=== PATIENT | male | born 1945 | race Caucasian/White ===

== ENCOUNTER 2023-12-13 15:17 | Emergency (ER) | payer OTHER, SELFPAY ==
[2023-12-13 15:18] VITALS: BP 149/83
--- NOTE | 2023-12-13 15:45 | ED.GENMED ---
History of Present Illness
General
Chief Complaint: Facial Problem
Source: patient and spouse
Time Seen by Provider: 12/13/23 15:35
Travel History
Have you had any contact with someone who has COVID-19?: No
Do you have any symptoms of coronavirus? Fever > 100 degrees, chills, cough, shortness of breath, sore throat, loss of taste or smell, muscle aches, or headache?: No
History of Present Illness
History of Present Illness:
78-year-old male with past medical history of bladder cancer, previously monitored benign right-sided facial/parotid tumor (follows with Dr. Hatfield from [facility] [place]) presenting to the emergency department for evaluation after he noticed
some mild discomfort to the right side of the face yesterday evening, this morning woke up and had significantly worse swelling and the continued pain prompting him to come to the ER today for further evaluation. Patient denies any fevers, chills,
rigors, traumatic injuries, recent illnesses, nasal congestion, sore throat, otalgia or hearing changes or any other concerns. Patient notes that he would follow annually with his oncologist at [facility] and states that his last visit in September
was told that they did not even palpate the mass any longer and that patient may not even need to come to see them on his annual visit next year.
Past History
Past History
ED Past Medical History: Cancer
ED Past Surgical History: Orthopedic
Social History
Tobacco: Former smoker
Alcohol: Occasional
Drug: None
Personal:
Living: with family
Review of Systems
Review of Systems
All Other Systems: ROS reviewed and negative except as documented in HPI and ROS
Phy Exam
Physical Exam
Physical Exam:
GENERAL: Alert , in no apparent distress
EYE: conjunctiva clear, pupil 3mm b/l, EOMI
Head: Normocephalic atraumatic
NECK: Supple, no other areas of lymphadenopathy
ENT: mmm. dentures to upper jaw, no palpable masses intraorally, no fluctuance. Moderate to large right sided facial edema extending from pre-auricular region inferiorly down towards angle of mandible. firm mass like structure. non-mobile. no
overlying erythema. mild ttp. Tolerating secretions, no trismus, uvula midline and airway is patent
LUNGS: no acute respiratory distress
NEUROLOGICAL: Alert and oriented
SKIN: Warm and dry, skin intact.
MUSCULOSKELETAL: well perfused.
PSYCH: Normal and appropriate interaction.
Scores
Heart Failure Risk
Heart Failure Risk Score: Not Applicable
Heart Score for Chest Pain Patients
STEMI patient?: Not applicable
Withdrawal Assessment of Alcohol
Withdrawal Assessment Completed?: Not applicable
Course
Orders/Labs/Results
Orders:
Orders
12/13/23 15:45
CT Facial Bones W/ Iv Contrast Urgent
Comment:
Reason For Exam: right sided facial mass/edema
12/13/23 16:10
Basic Metabolic Panel Urgent
Complete Blood Count/With Diff Urgent
Abnormal Lab Results
12/13/23
16:10
WBC 11.2 H 10^3/uL
(4.8-10.8)
RBC 4.25 L 10^6/uL
(4.70-6.10)
Hct 37.8 L %
(39.0-52.0)
MCH 32.0 H pg
(27.0-31.0)
Absolute Neuts (auto) 7.5 H 10^3/uL
(1.4-6.5)
Absolute Monos (auto) 1.3 H 10^3/uL
(0.1-0.6)
Lymphocytes % 17.8 L %
(20.5-51.1)
Monocytes % 11.7 H %
(1.7-9.3)
Glucose 125 H mg/dl
(70-99)
12/13/23 16:10
12/13/23 16:10
Vital Signs
Initial and Last Documented VS:
Initial Vital Signs
Temp Pulse Resp BP Pulse Ox
98 F 94 18 149/83 97
12/13/23 15:18 12/13/23 15:18 12/13/23 15:18 12/13/23 15:18 12/13/23 15:18
Last Documented Vital Signs
Temp Pulse Resp BP Pulse Ox
98 F 77 18 147/72 98
12/13/23 15:18 12/13/23 17:42 12/13/23 15:18 12/13/23 17:42 12/13/23 17:42
MDM/Problems Addressed
Differential Diagnosis Includes:
Malignancy, lymphadenopathy, parotitis, abscess
MDM/Problems Addressed:
78-year-old male presenting to the emergency department for evaluation of a right-sided facial swelling, concern for masslike structure. No airway compromise. Patient is otherwise very well-appearing and in no acute distress. Has a known history
of a mass that has been followed by [facility] and was ultimately inconclusive for any malignancy on previous biopsy and was only monitored annually with ultrasound and physical examination. Will obtain labs and CT imaging. Reassessment following.
*Radiology
Radiology exam reviewed: radiology read reviewed
*Pulse Oximetry
Patient hypoxic: no
*Critical Care Note
Total Time (30-74mins, 75-104mins- exclusive of procedures): Not Applicable
Patient Management
Discussion with other providers: Food Order Expediter
Escalation/DeEscalation of care consider admission/obs:
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 Patient was provided with a printout of the CT report. I notified our on-call ENT, Dr. Salgado, that patient would be calling the office for
follow-up. Patient will also contact his physician at [facility] for an expedited follow-up. Motrin/Tylenol as needed for pain, ice over the affected area for additional pain relief. There is no signs of airway compromise. Patient is otherwise
stable for discharge home.
ED Attending Note
-
Portions of this chart may have been created with voice recognition software.� Occasional wrong word or��sound alike� substitutions may have occurred due to the inherent limitations of voice recognition software.
Discharge Plan
Departure
Patient Disposition: Home (Routine Discharge)
Date of Disposition: 12/13/23
Time of Disposition: 17:24
Patient with high blood pressure during this ER visit?: Yes
Discharge Problem:
Mass of right parotid gland
Prescriptions:
No Action
No Current Medications
0
Referrals:
Marquez Zhou PA-C [Family Provider] -
Josep Salgado MD [Active] - (ENT)
Interventions
Interventions:
*Risk Screen - Suicide Last Done: 12/13/23 15:26
*General Assessment Last Done: 12/13/23 15:26
*ED COVID-19 Vaccine History Last Done: 12/13/23 15:26
ED-Skin Assessment Last Done: 12/13/23 16:34
Discharge Date and Time
Print Language: CITIZEN OF [place]
[2023-12-13 16:12] VITALS: BP 136/76; BMI 39.0
[2023-12-13 16:18] LABS: % Basophils 0.5 % (0-2); % Eosinophils 2.4 % (0-6); % Immature Granulocytes 0.3 % (0-0.5); % Lymphocytes 17.8 % (20.5-51.1); % Monocytes 11.7 % (1.7-9.3); % Neutrophils 67.3 % (42.2-75.2); Absolute Basophils 0.1 10^3/uL (0-0.2); Absolute Eosinophils 0.3 10^3/uL (0-0.7); Absolute Monocytes 1.3 10^3/uL (0.1-0.6); Absolute Neutrophils 7.5 10^3/uL (1.4-6.5); Hematocrit 37.8 % (39.0-52.0); Hemoglobin 13.6 g/dL (13.0-18.0); Mean Corpuscular Volume 88.9 fL (80.0-94.0); Mean Platelet Volume 9.1 fL (7.4-10.4); Nucleated Red Blood Cells % 0 % (-); Platelet Count 256 10^3/uL (130-400); Red Blood Cell Count 4.25 10^6/uL (4.70-6.10); Red Cell Dist. Width 13.7 % (11.5-14.5); White Blood Cell Count 11.2 10^3/uL (4.8-10.8)
[2023-12-13 16:36] LABS: Blood Urea Nitrogen 14 mg/dl (9-20); Calcium 10.1 mg/dl (8.4-10.2); Carbon Dioxide 22 mmol/L (22-30); Chloride 103 mmol/L (98-107); Estimated Creatinine Clearance 88 ml/min; Glucose 125 mg/dl (70-99); Potassium 3.9 mmol/L (3.5-5.1); Sodium 137 mmol/L (135-145); eGFR > 60.00
[2023-12-13 17:42] VITALS: BP 147/72
== END 2023-12-13 18:06 | disposition home or self-care (01) ==
LOC: EMR 15:17
PROVIDERS: Physician Assistant Medical; EMERGENCY PHYSICIAN Emergency Medicine; FAMILY PHYSICIAN Physician Assistant Medical
DX: K11.9 Disease of salivary gland, unspecified (principal); Z87.891 Personal history of nicotine dependence
CPT/HCPCS: 99284; 70487; 80048; 85025; Q9967

== ENCOUNTER 2024-02-13 17:56 | Inpatient (IN) | payer OTHER, SELFPAY ==
[2024-02-13] VITALS (8 sets, daily range): BP systolic 105–149; BP diastolic 58–85; BMI 38.9; BMI 38.1
[2024-02-13] MEDS: VALIUM 2 MG PO (14:37)
--- NOTE | 2024-02-13 14:37 | ED.GENMED ---
History of Present Illness
<THERESE Frye - Last Filed: 02/13/24 16:48>
General
Chief Complaint: Musculo-Skeletal Complaint
Source: patient
Exam Limitations: none
Time Seen by Provider: 02/13/24 13:42
History of Present Illness
History of Present Illness:
78 yr old male presents to the ER for evaluation. Patient reports he does typically get stiff next start with a stiff neck last Tuesday. Since then it is radiated to his shoulders. He did see his family doctor on Tuesday 3 days ago and was
prescribed 5 mg of Flexeril he has taken at night. He still complains of feel stiffness in his neck worse with moving the left right or looking up. He also feels pain in his shoulders and on Tuesday, yesterday he started with pain in his left
ankle. He denies any fever or chills. He denies any injury. He does reports he is having pain with bearing weight on left ankle.
Past History
<THERESE Frye - Last Filed: 02/13/24 16:48>
Past History
ED Past Medical History: Cancer
ED Past Surgical History: Orthopedic
Social History
Tobacco: Former smoker
Alcohol: Occasional
Drug: None
Personal:
Living: with family
Review of Systems
<THERESE Frye - Last Filed: 02/13/24 16:48>
Review of Systems
Allergies reviewed?: Yes
Other source history: family
All Other Systems: ROS reviewed and negative except as documented in HPI and ROS
Constitutional: Reports no symptoms; Denies fever, fatigue or chills
Respiratory: Reports no symptoms
Cardiac: Reports no symptoms
ABD/GI: Reports no symptoms
Musculoskeletal: Reports other (neck pain radiating to b/l shoulders and left ankle pain )
Skin: Reports no symptoms
Neurological: Reports no symptoms
Endocrine: Reports no symptoms
Hematologic/Lymphatic: Reports no symptoms
Psychiatric: Reports no symptoms
Phy Exam
<THERESE Frye - Last Filed: 02/13/24 16:48>
General Physical Exam
General Presentation: well appearing
General age: appears stated age
General Skin: warm and dry
General Habitus: elderly
General Mental: alert
General Hydration: appears well hydrated
Cardiovascular Exam
Cardiovascular Exam: tachycardia
Pulmonary Exam
Pulmonary Exam: lungs clear and no respiratory distress
Neurological Exam
Neurological Exam: alert, oriented x3 and other (Normal distal sensation to bilateral upper and lower extremities)
Musculoskeletal Exam
Musculoskeletal Exam: other (left ankle with mild swelling + erythema to medial left ankle tender to touch; patient is tender throughout the cervical muscles trapezius pain with flexion extension moving right to left)
Skin Exam
Skin Exam: normal color and warm/dry
Psychiatric Exam
Psychiatric Exam: normal mood/affect
Course
<THERESE Frye - Last Filed: 02/13/24 16:48>
Orders/Labs/Results
Orders:
Orders
02/13/24 14:32
Foot, Left 3 View [CR Foot - Left Min 3 Views] Urgent
Comment:
Reason For Exam: pain
02/13/24 14:33
Electrocardiogram (*1) Stat
Reason for Study: Other
Other Reason for Exam: chest pain
EKG- Treatment ONCE
Dexamethasone Sod Phosphate [Decadron] 10 mg IV NOW STA
Diazepam [Valium] 2 mg PO NOW STA
Ankle, left 3 view CR [CR Ankle - Left Min 3 Views ] Urgent
Comment:
Reason For Exam: pain
02/13/24 15:04
CBC/With Diff [Complete Blood Count/With Diff] Urgent
CMP [Comprehensive Metabolic Panel] Urgent
Lyme Progressive Urgent
Uric Acid Urgent
Comment: ADD ON
02/13/24 15:09
Cardiac Monitoring- Treatment ONCE
CR Cervical Spine 2 or 3 Vw Urgent
Comment:
Reason For Exam: pain
02/13/24 16:07
Acetaminophen [Tylenol] 650 mg PO NOW STA
02/13/24 16:20
Add On- LAB Urgent
Tests Added?: lyme
02/13/24 16:26
Add On- LAB Urgent
Tests Added?: uric acid
02/13/24 16:41
0.9% Sodium Chloride 1000 ml [Nss] 1,000 ml IV BOLUS
Abnormal Lab Results
02/13/24
15:04
WBC 11.8 H 10^3/uL
(4.8-10.8)
RBC 3.94 L 10^6/uL
(4.70-6.10)
Hgb 12.5 L g/dL
(13.0-18.0)
Hct 36.6 L %
(39.0-52.0)
MCH 31.7 H pg
(27.0-31.0)
Absolute Neuts (auto) 8.8 H 10^3/uL
(1.4-6.5)
Absolute Monos (auto) 1.3 H 10^3/uL
(0.1-0.6)
Lymphocytes % 13.3 L %
(20.5-51.1)
Monocytes % 10.6 H %
(1.7-9.3)
Creatinine 0.5 L mg/dL
(0.7-1.3)
02/13/24 15:04
02/13/24 15:04
Vital Signs
Initial and Last Documented VS:
Initial Vital Signs
Pulse Resp
107 20
02/13/24 13:39 02/13/24 13:39
Last Documented Vital Signs
Temp Pulse Resp BP
100.6 F H 104 20 128/58
02/13/24 16:08 02/13/24 16:00 02/13/24 16:00 02/13/24 16:00
<David Garcia, DO - Last Filed: 02/13/24 14:44>
Orders/Labs/Results
Orders:
Orders
02/13/24 14:32
Foot, Left 3 View [CR Foot - Left Min 3 Views] Urgent
Comment:
Reason For Exam: pain
02/13/24 14:33
Electrocardiogram (*1) Stat
Reason for Study: Other
Other Reason for Exam: chest pain
EKG- Treatment ONCE
Dexamethasone Sod Phosphate [Decadron] 10 mg IV NOW STA
Diazepam [Valium] 2 mg PO NOW STA
Ankle, left 3 view CR [CR Ankle - Left Min 3 Views ] Urgent
Comment:
Reason For Exam: pain
02/13/24 15:04
CBC/With Diff [Complete Blood Count/With Diff] Urgent
CMP [Comprehensive Metabolic Panel] Urgent
Lyme Progressive Urgent
Uric Acid Urgent
Comment: ADD ON
02/13/24 15:09
Cardiac Monitoring- Treatment ONCE
CR Cervical Spine 2 or 3 Vw Urgent
Comment:
Reason For Exam: pain
02/13/24 16:07
Acetaminophen [Tylenol] 650 mg PO NOW STA
02/13/24 16:20
Add On- LAB Urgent
Tests Added?: lyme
02/13/24 16:26
Add On- LAB Urgent
Tests Added?: uric acid
02/13/24 16:41
0.9% Sodium Chloride 1000 ml [Nss] 1,000 ml IV BOLUS
Abnormal Lab Results
02/13/24
15:04
WBC 11.8 H 10^3/uL
(4.8-10.8)
RBC 3.94 L 10^6/uL
(4.70-6.10)
Hgb 12.5 L g/dL
(13.0-18.0)
Hct 36.6 L %
(39.0-52.0)
MCH 31.7 H pg
(27.0-31.0)
Absolute Neuts (auto) 8.8 H 10^3/uL
(1.4-6.5)
Absolute Monos (auto) 1.3 H 10^3/uL
(0.1-0.6)
Lymphocytes % 13.3 L %
(20.5-51.1)
Monocytes % 10.6 H %
(1.7-9.3)
Creatinine 0.5 L mg/dL
(0.7-1.3)
02/13/24 15:04
02/13/24 15:04
Vital Signs
Initial and Last Documented VS:
Initial Vital Signs
Pulse Resp
107 20
02/13/24 13:39 02/13/24 13:39
Last Documented Vital Signs
Temp Pulse Resp BP
100.6 F H 104 20 128/58
02/13/24 16:08 02/13/24 16:00 02/13/24 16:00 02/13/24 16:00
<Vangie Crandall, DO - Last Filed: 02/13/24 16:46>
Orders/Labs/Results
Orders:
Orders
02/13/24 14:32
Foot, Left 3 View [CR Foot - Left Min 3 Views] Urgent
Comment:
Reason For Exam: pain
02/13/24 14:33
Electrocardiogram (*1) Stat
Reason for Study: Other
Other Reason for Exam: chest pain
EKG- Treatment ONCE
Dexamethasone Sod Phosphate [Decadron] 10 mg IV NOW STA
Diazepam [Valium] 2 mg PO NOW STA
Ankle, left 3 view CR [CR Ankle - Left Min 3 Views ] Urgent
Comment:
Reason For Exam: pain
02/13/24 15:04
CBC/With Diff [Complete Blood Count/With Diff] Urgent
CMP [Comprehensive Metabolic Panel] Urgent
Lyme Progressive Urgent
Uric Acid Urgent
Comment: ADD ON
02/13/24 15:09
Cardiac Monitoring- Treatment ONCE
CR Cervical Spine 2 or 3 Vw Urgent
Comment:
Reason For Exam: pain
02/13/24 16:07
Acetaminophen [Tylenol] 650 mg PO NOW STA
02/13/24 16:20
Add On- LAB Urgent
Tests Added?: lyme
02/13/24 16:26
Add On- LAB Urgent
Tests Added?: uric acid
02/13/24 16:41
0.9% Sodium Chloride 1000 ml [Nss] 1,000 ml IV BOLUS
Abnormal Lab Results
02/13/24
15:04
WBC 11.8 H 10^3/uL
(4.8-10.8)
RBC 3.94 L 10^6/uL
(4.70-6.10)
Hgb 12.5 L g/dL
(13.0-18.0)
Hct 36.6 L %
(39.0-52.0)
MCH 31.7 H pg
(27.0-31.0)
Absolute Neuts (auto) 8.8 H 10^3/uL
(1.4-6.5)
Absolute Monos (auto) 1.3 H 10^3/uL
(0.1-0.6)
Lymphocytes % 13.3 L %
(20.5-51.1)
Monocytes % 10.6 H %
(1.7-9.3)
Creatinine 0.5 L mg/dL
(0.7-1.3)
02/13/24 15:04
02/13/24 15:04
Vital Signs
Initial and Last Documented VS:
Initial Vital Signs
Pulse Resp
107 20
02/13/24 13:39 02/13/24 13:39
Last Documented Vital Signs
Temp Pulse Resp BP
100.6 F H 104 20 128/58
02/13/24 16:08 02/13/24 16:00 02/13/24 16:00 02/13/24 16:00
<THERESE Frye - Last Filed: 02/13/24 16:48>
MDM/Problems Addressed
Differential Diagnosis Includes:
Not limited to torticollis, gout, Lyme, septic joint
MDM/Problems Addressed:
Patient is a 78-year-old male who presented with complaints of left ankle pain for the past 2 days. Patient has had some neck pain for the past week but it was muscular saw family doctor prescribed Flexeril however also start with left medial ankle
pain last night he is unable to bear weight. Initially he did not state this but on repeat questioning he reports he had sweats the other night. On exam he has swelling to the left ankle with medial redness. He was found to be mildly tachycardic
here with a mild low-grade temp of 100.6 white count mildly elevated 100.8. With redness and swelling concern for infection. Case reviewed with orthopedics who does recommend IR procedure IR cannot do this procedure at this time will admit for
fever and ankle pain will need aspiration and further evaluation will hold off on antibiotics as per Ortho.with regards to neck pain this does appear muscular no meningismus.
<THERESE Frye - Last Filed: 02/13/24 16:48>
*Critical Care Note
Total Time (30-74mins, 75-104mins- exclusive of procedures): Not Applicable
<Vangie Crandall DO - Last Filed: 02/13/24 16:46>
Update Note
Update Note:
ED ATTENDING NOTE
16:30 -assuming care of patient from prior physician. 78-year-old male presenting to the hospital for persistent neck pain and now left ankle pain. Patient notes that the neck pain has been ongoing, however the left ankle pain started 2 days ago
without inciting trauma or injury. Denies injury to the neck as well. His primary concern today is for the left ankle. He has increased difficulty bearing weight secondary to pain. Denies numbness or tingling to the extremity. Denies known
fever, however did wake up in a pool of sweat 2 days ago. Denies any recent bug bites or environmental exposure. Reports history of gout about 7 years ago, however pain feels different.
On my examination, patient is resting comfortably, nontoxic. On examination of the neck, no focal tenderness, range of motion intact. No meningismus. On examination of the left ankle, slight erythema at the medial malleoli joint swelling.
Tenderness to palpation. Distal pulses intact. Range of motion grossly intact.
At time of signout, workup significant for mild leukocytosis. Patient had x-ray of his neck without acute malalignment or injury. X-ray of ankle also obtained, unremarkable. However, patient now febrile and slightly tachycardic. In the setting
of fever with slight erythema to the ankle, difficulty bearing weight, and leukocytosis, cannot safely rule out joint infection. In discussion with orthopedics, plan for IR arthrocentesis, holding antibiotics until procedure complete. Also added
Lyme, uric acid level, ESR/CRP. Patient agreeable to admission. Without present concern for meningitis, again no meningismus, normal mental status.
-Vangie Crandall DO
ED Attending Note
<THERESE Frye - Last Filed: 02/13/24 16:48>
-
Portions of this chart may have been created with voice recognition software.� Occasional wrong word or��sound alike� substitutions may have occurred due to the inherent limitations of voice recognition software.
<David Garcia, DO - Last Filed: 02/13/24 14:44>
ED Attending Note
Patient seen and examined by attending physician: Yes
I performed the substantive portion of visit, reviewed & personally made and approve the management plan that is documented in note by myself or LORENZO.: Yes
ED Attending Note:
I have seen and evaluated the patient with a [id number] encounter. I have spoken to the advance practicer provider and involved in the medical history, the physical exam, medical decision making.
Evaluation and management service: agree unless noted differently below.
Results interpretation: agree unless noted differently below.
Focused HPI: 78-year-old male presenting for evaluation of neck pain, joint pain and left foot pain. He follow-up with his doctor and was placed on Flexeril. is concerned because patient is having trouble moving due to discomfort. She did
acknowledge that the swelling in the back of his neck has decreased somewhat. Patient denies fevers
Physical exam: Sitting in bed comfortably. Decreased range of motion of his neck secondary to pain. Spasm noted to paracervical musculature. No anterior neck tenderness or tenderness to carotid palpation. Patient also complains of bilateral
elbow joint pain but there is no swelling or erythema. In regards to his foot pain, I do not appreciate any skin changes. Tenderness localized to the plantar fascia especially along the origin by the calcaneus. Discussed likely calcaneal spur
Medical Decision Making: Will obtain x-ray of neck and foot. Will start steroids. Will give trial of p.o. Valium as a better muscle relaxant than Flexeril. Will obtain basic blood work and obtain screening EKG. If patient feeling better, will
consider Valium prescription and will place on steroid taper. I had a long discussion with patient and in regards to possible polyarthralgia and having the autoimmune workup by PCP
Discharge Plan
Departure
Patient Disposition: Admit
Date of Disposition: 02/13/24
Time of Disposition: 16:44
Admit to: Med/Surg
Admit to doctor: hospitalist
Presentation/result/management discussed w/ accepting MD/DO: Hospitalist
Patient with high blood pressure during this ER visit?: Yes
Condition: Fair
Covid-19: Not Applicable
Discharge Problem:
Acute ankle pain, Fever
Prescriptions:
No Action
No Current Medications
0
Referrals:
Marquez Zhou PA-C [Family Provider] -
Interventions
Interventions:
*Risk Screen - Suicide Last Done: 02/13/24 13:43
*General Assessment Last Done: 02/13/24 13:43
*Neglect/Abuse Screening Last Done: 02/13/24 13:43
*ED COVID-19 Vaccine History Last Done: 02/13/24 13:56
ED-Musculoskeletal Assessment Last Done: 02/13/24 13:56
Discharge Date and Time
Print Language: [place]
[2024-02-13] MEDS: DECADRON 10 MG IV (15:05)
[2024-02-13 15:14] LABS: % Basophils 0.8 % (0-2); % Eosinophils 0.7 % (0-6); % Immature Granulocytes 0.3 % (0-0.5); % Lymphocytes 13.3 % (20.5-51.1); % Monocytes 10.6 % (1.7-9.3); % Neutrophils 74.3 % (42.2-75.2); Absolute Basophils 0.1 10^3/uL (0-0.2); Absolute Eosinophils 0.1 10^3/uL (0-0.7); Absolute Lymphocytes 1.6 10^3/uL (1.2-3.4); Absolute Monocytes 1.3 10^3/uL (0.1-0.6); Absolute Neutrophils 8.8 10^3/uL (1.4-6.5); Hematocrit 36.6 % (39.0-52.0); Hemoglobin 12.5 g/dL (13.0-18.0); Mean Corp Hgb Conc. 34.2 g/dL (33.0-37.0); Mean Corpuscular Hgb 31.7 pg (27.0-31.0); Mean Corpuscular Volume 92.9 fL (80.0-94.0); Mean Platelet Volume 8.9 fL (7.4-10.4); Nucleated Red Blood Cells % 0 % (-); Platelet Count 288 10^3/uL (130-400); Red Blood Cell Count 3.94 10^6/uL (4.70-6.10); Red Cell Dist. Width 13.8 % (11.5-14.5); White Blood Cell Count 11.8 10^3/uL (4.8-10.8)
[2024-02-13 15:31] LABS: ALT (SGPT) 15 U/L (0-50); AST (SGOT) 23 U/L (17-59); Alkaline Phosphatase 69 U/L (38-126); Blood Urea Nitrogen 10 mg/dl (9-20); Carbon Dioxide 25 mmol/L (22-30); Chloride 100 mmol/L (98-107); Estimated Creatinine Clearance 103 ml/min; Glucose 99 mg/dl (70-99); Potassium 4.4 mmol/L (3.5-5.1); Sodium 136 mmol/L (135-145); Total Bilirubin 0.6 mg/dl (0.2-1.3); Total Protein 7.4 g/dl (6.3-8.2); eGFR > 60.00
[2024-02-13] MEDS: TYLENOL 650 MG PO (16:10)
--- NOTE | 2024-02-13 17:01 | HPS.HSE ---
Addendum entered and electronically signed by Anthony Orlando MD 02/13/24 18:03:
78-year-old male with a past medical history osteoarthritis, hypertension, extended status, bladder cancer status post surgery, and obesity due to excess calories presents with one 1 week of neck pain, and 1 day of left heel pain. Patient denies
injury, denies trauma. He was found to be febrile in the emergency room, temperature 100.6. He also had a mild leukocytosis of 11.8.
Cervical x-rays show degenerative disc disease, left foot and left ankle x-rays show degenerative changes.
His physical exam is consistent with left-sided plantar fasciitis.
He received Decadron 10 mg IV in the ER, continue to treat with prednisone 40 mg p.o. daily.
He denies cough, denies dysuria. Unclear etiology for his fever and leukocytosis.
Check ESR/CRP, PCT, consult ID, consult IR for possible drainage, check covid, CXR, UA for completeness sake.
Updated at bedside 02/12.
I have personally seen and examined the patient, and agree with the plan of care as documented by Jennifer Ware PA-C.
Advance care planning discussed, patient is a full code.
All other issues as outlined by the advanced care practitioner.
Total time spent to see the patient on the floor, examine the patient, review data and lab results, discuss treatment plan with patient, nursing staff around 77 minutes.
Original Note:
Family Physician
-
Family Physician: Marquez Zhou
Chief Complaint
-
Fever and Left Ankle Pain
History of Present Illness
Patient is an 78 y/o male with a PMH of HTN, gout, mass of parotid gland, and obesity who reports to the ED for left ankle and foot pain x 2 days. Patient states the pain started Tuesday afternoon. After taking a nap he went to get up from his
recliner and couldn't bear weight on it. He denies any injury or trauma. He has a history of gout 6 years ago but can't remember which joint was affected. His states that he did have sweats and chills yesterday. He denies cough, congestion,
rhinorrhea, nausea, vomiting, diarrhea, abdominal pain. He denies any recent tick exposures and denies outdoor activities like gardening.
Medical History
Past Medical History
Past Medical History: Reports Other
Additional Past Medical History:
Mild/Moderate Aortic Stenosis
Essential Hypertension
Gout
Parotid Tumor
Morbid Obesity
Bladder CA
Past Surgical History: Reports Other
Additional Past Surgical History:
TURBT
Bilateral Knee Replacement
Left Hip Replacement
Left shoulder Tendon Repair
Bilateral Carpal Tunnel
Social History
Tobacco: Former Smoker (Quit in 1986)
Alcohol: Occasional (Once a Week)
Family History
Family History: Not pertinent
Allergies / Home Medications
Allergies reflects when Allergies were last updated in [employer].
Home Medications with original date entered in [employer]
Allergy/Medication List:
Allergies
Allergy/AdvReac Type Severity Reaction Status Date / Time
oxycodone Allergy Mild Nausea / Verified 02/13/24 13:40
Vomiting
Home Medications
acetaminophen 650 mg tablet,extended release (Tylenol Arthritis Pain) 1,300 mg PO Q8HPRN PRN mild pain 02/13/24
cyclobenzaprine 5 mg tablet 5 mg PO HS 02/13/24
ibuprofen 200 mg tablet 800 mg PO Q6HPRN PRN mild pain 02/13/24
sodium chloride 5 % eye drops (Bita 128) 1 drp BOTH EYES DAILY 02/13/24
vit C 250 mg-vit E 90 mg-zinc 40 mg-copper 1 ql-[id number]-fcpnhs capsule (PreserVision AREDS-2) 1 tab PO BID 02/13/24
Review of Systems
-
A 12 point ROS was completed and negative except as noted: Yes
Constitutional: Reports Fever and Chills
Respiratory: Denies Cough or Trouble Breathing
Cardiac: Denies Chest Pain or Palpitations
Abdomen/GI: Denies Abdominal Pain, Nausea, Vomiting or Diarrhea
Musculoskeletal: Reports See HPI
Physical Exam
Vital Signs
Vital Signs
Temp Pulse Resp BP
100.6 F H 113 22 128/58
02/13/24 16:08 02/13/24 16:45 02/13/24 16:45 02/13/24 16:00
Physical Exam
General: Comfortable and Conversant
HEENT: Anicteric and Moist mucous membranes
Respiratory: Clear and Non Labored Respirations
Cardiac: S1/S2, Regular Rhythm, Tachycardia and Murmur (2/6 NISHA)
GI: Soft and Non Tender
Rectal: Deferred by Provider
Musculoskeletal: No Clubbing, No Cyanosis and Other (Edema left foot and ankle with tenderness to palpation along the calcaneous)
Skin: Other (Mild erythema left medial malleolus )
Neuro: Awake, Alert, Oriented and Nonfocal/grossly intact
Psych: Calm
Laboratory Results
-
02/13/24 15:04
02/13/24 15:04
Laboratory Results
Total Bilirubin 0.6 mg/dl (0.2-1.3) 02/13/24 15:04
AST 23 U/L (17-59) 02/13/24 15:04
ALT 15 U/L (0-50) 02/13/24 15:04
Alkaline Phosphatase 69 U/L (38-126) 02/13/24 15:04
Data Reviewed
-
Diagnostic Radiology: Report Reviewed by me
Lab Data: Labs Reviewed by me
Impression/Plan
-
SIRS with Left Foot/Ankle Pain, possibly Septic Joint vs Lyme vs Gout
-Consult Ortho
-Conuslt Infectious Disease
-Plan for IR arthrocentesis tomorrow
-Hold on antibiotics until able to obtain synovial fluid sample
-Check ESR, CRP, Procalcitonin and Lyme
Mild/Moderate Aortic Stenosis by Echo December 2021
-Monitor Daily Weights
Morbid Obesity
-Affects all aspects of care
Hx Bladder CA s/p TURBT and BCG Treatment
DVT proph: Lovenox
Code Status: Full Code
[2024-02-13 17:02] LABS: Uric Acid 4.1 mg/dl (3.5-8.5)
[2024-02-13] MEDS: NSS 1000 IV ×2 (17:36→19:08)
--- NOTE | 2024-02-13 18:03 | W.PN.UPDATE ---
Update Note
Progress Note Update
For billing purposes.
[2024-02-13 18:29] LABS: Erythrocyte Sed Rate 56 mm/hour (0-20)
[2024-02-13 18:56] LABS: Procalcitonin < 0.05 ng/ml (0.0-0.25)
--- NOTE | 2024-02-13 19:00 | PTCARENOTE ---
Pt arrived to unit from ED, vital signs stable except temp of 99.5F. Pt oriented to room, call abernathy within reach. AAOx3, no complaints at this time.
[2024-02-13] MEDS: LOVENOX 40 MG SC (19:08)
[2024-02-13] MEDS: NSS 500 IV (19:58)
--- NOTE | 2024-02-13 22:07 | PTCARENOTE ---
~2000: Pt's HR increased into the 140s and sustained in the 120s-130s. Pt asymptomatic except temperature of 99.5F. Danny Campos notified, order placed for 1x IV normal saline 500 mL bolus.
~ 2200: Pt's HR now in the 110s-120s, still asymptomatic after bolus. Temperature 98.7F. Danny Campos notified, no new orders at this time, will continue to monitor.
[2024-02-14] VITALS (9 sets, daily range): BP systolic 104–141; BP diastolic 73–99; PULSE 105; O2SAT 96; BMI 38.0
[2024-02-14] MEDS: NSS 1000 IV ×2 (06:07→16:09)
[2024-02-14 07:34] LABS: Hematocrit 33.5 % (39.0-52.0); Hemoglobin 11.6 g/dL (13.0-18.0); Mean Corp Hgb Conc. 34.6 g/dL (33.0-37.0); Mean Corpuscular Hgb 31.5 pg (27.0-31.0); Mean Platelet Volume 9.1 fL (7.4-10.4); Platelet Count 301 10^3/uL (130-400); Red Blood Cell Count 3.68 10^6/uL (4.70-6.10); Red Cell Dist. Width 13.8 % (11.5-14.5); White Blood Cell Count 11.2 10^3/uL (4.8-10.8)
[2024-02-14 07:52] LABS: Blood Urea Nitrogen 12 mg/dl (9-20); Calcium 9.7 mg/dl (8.4-10.2); Carbon Dioxide 22 mmol/L (22-30); Chloride 108 mmol/L (98-107); Estimated Creatinine Clearance 101 ml/min; Glucose 153 mg/dl (70-99); Magnesium 1.7 mg/dl (1.6-2.3); Potassium 4.4 mmol/L (3.5-5.1); Sodium 140 mmol/L (135-145); eGFR > 60.00
[2024-02-14] MEDS: DELTASONE 40 MG PO (08:11)
--- NOTE | 2024-02-14 08:43 | W.PN.HOSP.TC ---
Today's Communication/Plan
-
See bold
Assessment / Plan
Assessment / Plan
HPI: 78-year-old male with a past medical history osteoarthritis, hypertension, extended status, bladder cancer status post surgery, and obesity due to excess calories presents with one 1 week of neck pain, and 1 day of left heel pain. Patient
denies injury, denies trauma. He was found to be febrile in the emergency room, temperature 100.6. He also had a mild leukocytosis of 11.8.
Cervical x-rays show degenerative disc disease, left foot and left ankle x-rays show degenerative changes.
His physical exam is consistent with left-sided plantar fasciitis.
He received Decadron 10 mg IV in the ER, continue to treat with prednisone 40 mg p.o. daily.
#Left heel/plantar pain
#Probable left plantar fasciitis
Much improved status post IV dexamethasone in the ER, continue oral prednisone
PT rec outpt PT
#Systemic inflammatory response syndrome with tachycardia, fever, mild leukocytosis
CRP elevated, PCT negative. Check flu/covid/UA
ID consulted, for possible tap of left ankle today
#Morbid obesity
Affects all aspects of care
#Mild/moderate aortic stenosis
Stable
#Hx Bladder CA s/p TURBT and BCG Treatment
DVT prophylaxis�subcu Lovenox
Full code
Total time spent to see the patient on the floor, examine the patient, review data and lab results, discuss treatment plan with patient, nursing staff around 35 minutes.
Physical Exam
General: No acute distress
HEENT: Normocephalic, Atraumatic, EOMI, MMM
Respiratory: Clear to Auscultation bilaterally
Cardiac: Normal S1/S2, Regular Rate and Rhythm
GI: Soft, Nontender, Nondistended, Normal Bowel Sounds
Extremities: No Clubbing, Cyanosis, or Edema
Musculoskeletal:
No tenderness over the left ankle
Tenderness at the left heel extending through the plantar fascia, worse with plantarflexion
Neuro: Nonfocal/Grossly Intact
Psych: Calm, Cooperative
Derm: No Visible lesions
Anticipated Discharge: Within 24 hours
Subjective/Interval History
-
Date of Service: February 14, 2024
Patient reports that his left foot pain is much improved. No fever, no vomiting.
Objective Data
-
Labs:
Laboratory Results
02/14/24
06:43
WBC 11.2 H
Hgb 11.6 L
Hct 33.5 L
Plt Count 301
Sodium 140
Potassium 4.4
Chloride 108 H
Carbon Dioxide 22
BUN 12
Creatinine 0.5 L
Glucose 153 H
Calcium 9.7
Vital Signs:
Vital Signs
Temp Pulse Resp BP Pulse Ox
98.2 F 100 18 132/78 96
02/14/24 07:51 02/14/24 07:51 02/14/24 07:51 02/14/24 07:51 02/14/24 07:51
I&O
02/13/24 02/14/24 02/15/24
06:59 06:59 06:59
Intake Total 1220 / 1220 1000 / 1000
Output Total 1750 / 1750
Balance -530 / -530 1000 / 1000
[2024-02-14 09:07] LABS: Glycohemoglobin (HgbA1c) 5.6 % (4.0-5.6)
--- NOTE | 2024-02-14 13:02 | CON.ID ---
Consultation
-
Date/Time Consultation Requested: February 13, 2024 1836
Date/Time Consultation Performed: February 14, 2024 1300
Requesting Provider: Cano PA-C
Performing Provider: Dr. Galilea Jacome
Reason for Consultation: ankle pain
Chief Complaint / Past History
Chief Complaint
Body stiffness and left ankle pain.
History of Present Illness
History obtained from the patient as well as from his at bedside. 78-year-old male with aortic stenosis, gout 5 years ago, hypertension, who developed fevers and leukocytosis in December 2023 without focal symptoms or infectious source. His PCP
treated him with 7-day course of amoxicillin. Fever resolved. Last week he complained of stiff shoulder and neck across. His PCP placed him on Flexeril. However he continued to feel stiff and unable to walk. He noted left heel and ankle
pain/swelling with difficulty bearing weight. Positive sweats at home. Positive intermittent headaches the past 2 weeks. He presented to the ER yesterday. Temperature 100.6. White count 11. CRP 175, sed rate 56, procalcitonin negative. Uric
acid normal. Lyme screen pending. He denies tick or insect exposure. He does walk his dog along the grass between his and his neighbors house. The dog does not bring any ticks in. Patient received dexamethasone in the ER yesterday. He is on
prednisone today. No antibiotic. Today he feels some improvement. He was able to walk to the bathroom and out in the hallway. Upper body stiffness resolving. No LARA. He just returned from IR guided aspiration of the left ankle.
Past History
Additional Past Medical History:
HTN
Aortic stenosis
gout
Morbid obesity BMI 38
bladder cancer s/p TURBT
Parotid tumor
L THR
Left shoulder tendon repair
Bilateral carpel tunnel release
Allergy History:
oxycodone Allergy (Mild, Verified 02/13/24 13:40)
Nausea / Vomiting
Medications Reviewed: Yes
Current Antibiotics:
No abx
Social History
Tobacco: Former Smoker
Alcohol: Occasional
Drug: None
Personal:
Living: With Family
Family History
Family History: Not Pertinent
Review of Systems
Review of Systems
General: Fever, Chills and Change in Appetite
HEENT: Headache; Negative Sinus Problems or Pharyngitis
Cardiovascular: Negative Chest Pain
Respiratory: Negative Cough
Gasteroenterology: Other (no diarrhea); Negative Nausea or Vomiting
Genital / Urological: Negative Dysuria or Flank Pain
Neurological: Negative Headache or Dizziness
All systems: All other systems were reviewed and were negative
Vital Signs
Temp Pulse Resp BP Pulse Ox
98.3 F 113 18 128/99 98
02/14/24 11:34 02/14/24 11:34 02/14/24 11:34 02/14/24 11:34 02/14/24 11:34
Selected Entries
02/13/24
16:08
Temp 100.6 F H
Physical Exam
Physical Exam
Constitutional: No Acute Distress and Non-toxic
Eyes: No Conjunctival Hemorrhage and Sclera Anicteric
Cardiovascular: Murmur (systolic RUSB)
Pulmonary: Clear
Gastrointestinal: Soft, Non Tender, Non Distended and Normal Bowel Sounds
Extremities: Edema (left foot/ankle 1 +) and Erythema (mild erythema ankle, minimal warmth)
Neurological: AO x 3; Negative Meningeal Signs (neck supple)
Lab / Diagnostic Study Results
02/14/24 06:43
02/14/24 06:43
Abs Immat Gran (auto) 0.0 10^3/uL (0-0.05) 02/13/24 15:04
Absolute Neuts (auto) 8.8 10^3/uL (1.4-6.5) H 02/13/24 15:04
Absolute Lymphs (auto) 1.6 10^3/uL (1.2-3.4) 02/13/24 15:04
Absolute Monos (auto) 1.3 10^3/uL (0.1-0.6) H 02/13/24 15:04
Absolute Basos (auto) 0.1 10^3/uL (0-0.2) 02/13/24 15:04
Immature Gran % 0.3 % (0-0.5) 02/13/24 15:04
Neutrophils % 74.3 % (42.2-75.2) 02/13/24 15:04
Lymphocytes % 13.3 % (20.5-51.1) L 02/13/24 15:04
Monocytes % 10.6 % (1.7-9.3) H 02/13/24 15:04
Eosinophils % 0.7 % (0-6) 02/13/24 15:04
Basophils % 0.8 % (0-2) 02/13/24 15:04
ESR 56 mm/hour (0-20) H 02/13/24 18:12
C-Reactive Protein 174.50 mg/L (0.0-10.00) H 02/13/24 18:12
Procalcitonin < 0.05 ng/ml (0.0-0.25) 02/13/24 18:12
Microbiology Results
02/13/24 Foot/Ankle XRAY: Degenerative changes.
Assessment / Plan
# Left foot/ankle pain
# Upper body muscle stiffness
# fever
#Leukocytosis stable (on steroid)
# hx gout (toe) 5 years ago
- Pt's symptoms significantly improving on steroid, off abx, suggestive of inflammatory arthropathy
- Follow ankle fluid result.
- Observe off abx for now.
- If T>101, obtain blood cx.
--- NOTE | 2024-02-14 13:12 | CM ---
Patient seen at bedside. Patient states that he lives with his in a one story home with no DME. 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 Patient stated that he had a PROGRAMMING DIRECTOR Marquez Zhou and that he uses the [facility] in [place]. Patient stated he is
independent of ADL's and IADL's. Patient indicated that he did not have any concerns about going home. CM will continue to follow for discharge planning needs.
Plan; home with no needs anticipated.
[2024-02-14 16:35] LABS: COVID-19 Antigen Negative (Negative)
[2024-02-14 16:58] LABS: Urine Albumin Negative (Neg - Trace); Urine Bilirubin Negative (Negative); Urine Character Clear (Clear); Urine Color Yellow; Urine Glucose Negative (Negative); Urine Ketone Negative (Negative); Urine Leukocyte Negative (Negative); Urine Nitrite Negative (Negative); Urine Occult Blood Trace (Negative); Urine Specific Gravity 1.015 (<1.030); Urine Urobilinogen Negative (Neg - 1+)
[2024-02-14 17:11] LABS: Urine Bacteria Few (Negative); Urine White Cell 0-2 /HPF (0-5)
[2024-02-14] MEDS: LOVENOX 40 MG SC (17:25)
--- NOTE | 2024-02-14 17:51 | PTCARENOTE ---
Patient received from IR with small bandaid to front of left ankle- no drainage, no c/o pain. visiting at present .
--- NOTE | 2024-02-15 03:08 | DOWNTIME ---
There was a [employer] Downtime on 02/15/2024 from 0100 to 02/15/2024 at 0255. Downtime documentation of patient's care, including medication administrations, has been reconciled in the electronic record per guidelines. Refer to the
patient's paper chart under the miscellaneous tab to see printed paper medication records and downtime forms.
[2024-02-15] MEDS: NSS IV (03:30)
[2024-02-15 03:42] VITALS: BP 124/81
[2024-02-15 06:10] VITALS: BMI 38.4
[2024-02-15 07:00] VITALS: BP 137/83
[2024-02-15 07:46] LABS: Hematocrit 32.2 % (39.0-52.0); Hemoglobin 10.9 g/dL (13.0-18.0); Mean Corp Hgb Conc. 33.9 g/dL (33.0-37.0); Mean Corpuscular Hgb 31.5 pg (27.0-31.0); Mean Corpuscular Volume 93.1 fL (80.0-94.0); Mean Platelet Volume 8.8 fL (7.4-10.4); Platelet Count 275 10^3/uL (130-400); Red Blood Cell Count 3.46 10^6/uL (4.70-6.10); Red Cell Dist. Width 13.8 % (11.5-14.5); White Blood Cell Count 14.6 10^3/uL (4.8-10.8)
[2024-02-15] MEDS: DELTASONE 40 MG PO (07:48)
--- NOTE | 2024-02-15 08:43 | W.PN.HOSP.TC ---
Today's Communication/Plan
-
Discharge today
Assessment / Plan
Assessment / Plan
HPI: 78-year-old male with a past medical history osteoarthritis, hypertension, extended status, bladder cancer status post surgery, and obesity due to excess calories presents with one 1 week of neck pain, and 1 day of left heel pain. Patient
denies injury, denies trauma. He was found to be febrile in the emergency room, temperature 100.6. He also had a mild leukocytosis of 11.8.
Cervical x-rays show degenerative disc disease, left foot and left ankle x-rays show degenerative changes.
His physical exam is consistent with left-sided plantar fasciitis.
He received Decadron 10 mg IV in the ER, continue to treat with prednisone 40 mg p.o. daily.
#Left heel/plantar pain
#Probable left plantar fasciitis
Much improved status post IV dexamethasone in the ER, continue oral prednisone to complete a 5-day course
Medically stable for discharge
PT rec outpt PT, prescription provided
#Systemic inflammatory response syndrome with tachycardia, fever, mild leukocytosis
CRP elevated, PCT negative. Check flu/covid/UA
Appreciate ID input, likely from inflammatory arthropathy
Left ankle fluid cx on 02/13 NTD
#Morbid obesity
Affects all aspects of care
#Mild/moderate aortic stenosis
Stable
#Hx Bladder CA s/p TURBT and BCG Treatment
DVT prophylaxis�subcu Lovenox
Full code
Physical Exam
General: No acute distress
HEENT: Normocephalic, Atraumatic, EOMI, MMM
Respiratory: Clear to Auscultation bilaterally
Cardiac: Normal S1/S2, Regular Rate and Rhythm
GI: Soft, Nontender, Nondistended, Normal Bowel Sounds
Extremities: No Clubbing, Cyanosis, or Edema
Musculoskeletal:
No tenderness over the left ankle
Tenderness at the left heel extending through the plantar fascia, worse with plantarflexion
Neuro: Nonfocal/Grossly Intact
Psych: Calm, Cooperative
Derm: No Visible lesions
Anticipated Discharge: Today
Subjective/Interval History
-
Date of Service: February 15, 2024
Patient's left heel/plantar pain continues to improve. He is able to ambulate with minimal pain. No fever, no vomiting.
Objective Data
-
Labs:
Laboratory Results
02/15/24
07:27
WBC 14.6 H
Hgb 10.9 L
Hct 32.2 L
Plt Count 275
Vital Signs:
Vital Signs
Temp Pulse Resp BP Pulse Ox
97.8 F 79 16 137/83 97
02/15/24 07:00 02/15/24 07:00 02/15/24 07:00 02/15/24 07:00 02/15/24 07:00
I&O
02/14/24 02/15/24 02/16/24
06:59 06:59 06:59
Intake Total 1220 / 1220 3920 / 3920 800 / 800
Output Total 1750 / 1750
Balance -530 / -530 3920 / 3920 800 / 800
[2024-02-15 11:00] VITALS: BP 140/72
--- NOTE | 2024-02-15 13:29 | W.DCSUMMARY ---
Discharge Summary
Discharge Data
Date of Admission: 02/13/24
Date of Discharge: 02/15/24
-
Pending Results: Yes
Additional Pending Results:
Left ankle synovial fluid crystal analysis is pending.
Hospital Course
Discharge diagnosis:
Inflammatory arthropathy
Left plantar fasciitis
Mild/moderate aortic stenosis
Obesity due to excess calories
Consults: ID
Cervical x-rays show degenerative disc disease, left foot and left ankle x-rays show degenerative changes.
Hospital course:
78-year-old male with a past medical history osteoarthritis, hypertension, bladder cancer status post surgery, and obesity was admitted for left foot pain, fever, and leukocytosis. Patient's physical exam was noted for severe pain at his left heel
extending to his plantar fascia, worse with plantarflexion. This is suspicious for left plantar fasciitis. He received dexamethasone 10 mg IV in the ER. He was treated with oral prednisone.
Patient was seen in conjunction with ID. His CRP is elevated. ID suspects he has inflammatory arthropathy. His fever resolved. He underwent aspiration of his left ankle on 02/14/2024. Cultures were negative. Crystal analysis is pending.
After several days, his left foot pain improved dramatically. He was able to ambulate with minimal pain. He was seen in conjunction with PT, who recommends outpatient PT. Patient is medically stable for discharge. He will be discharged on
prednisone 40 mg for 2 more days to complete a 5-day course. He needs to follow-up with his primary care doctor in 1 week.
Disposition: Home self-care
Discharge planning: Required 42 minutes
Discharge Plan
-
Patient Disposition: Home (Routine Discharge)
Discharge Diagnosis/Procedures: Probable left plantar fasciitis, inflammatory arthropathy/inflammation of the joints, fever
Condition: Good
Diet: Regular
Activity: As tolerated
Driving Restrictions: As prior to admission
Other Services: PT
Activity Restrictions/Additional Instructions:
Prescription has been provided for outpatient physical therapy.
Please follow-up with your primary care doctor in 1 week.
Referrals:
Marquez Zhou PA-C [Family Provider] - in one week
Prescriptions:
New
prednisone 20 mg Tablet
40 mg PO DAILY 2 Days Qty: 4 0RF
tramadol 50 mg Tablet
50 mg PO TIDPRN PRN (Reason: severe pain) Qty: 20 0RF
Continued
sodium chloride [Bita 128] 5 % Drops
1 drp BOTH EYES DAILY
acetaminophen [Tylenol Arthritis Pain] 650 mg Tablet Extended Release
1,300 mg PO Q8HPRN PRN (Reason: mild pain)
PreserVision AREDS-2 250-90-40-1 mg Capsule
1 tab PO BID
ibuprofen 200 mg Tablet
800 mg PO Q6HPRN PRN (Reason: mod pain) Qty: 0 0RF
Changed
cyclobenzaprine 5 mg Tablet
5 mg PO HS PRN (Reason: muscle spasm) Qty: 0 0RF
Patient Comments:
02/13/24: instructed by doctor to take for 10 days to test the efficacy. Has taken it for 3 out of the 10 days.
Discharge Orders:
Discharge Patient (As Directed); Ordered 02/15/24
Ordered By: Anthony Orlando
Discharge Date and Time
Discharge Date/Time: 02/15/24 15:19
Print Language: SAMOAN
--- NOTE | 2024-02-15 13:59 | W.PN.ID1 ---
Date of Service
Date of Service: February 15, 2024
Today's Communication
Attempt to add-on crystal analysis to ankle fluid.
No abx.
Assessment / Plan
# Left foot/ankle pain
# Upper body muscle stiffness
# fever low grade x 1 resolved
#Leukocytosis (on steroid)
# hx gout (toe) 5 years ago
- Pt's symptoms significantly improving on steroid, off abx, suggestive of inflammatory arthropathy
- IR aspirated 1ml ankle fluid.
Cx negative to date.
No crystal analysis sent. Try to add-on crystal analysis if any fluid left.
- No indication for abx.
#Additional Past Medical History:
HTN
Aortic stenosis
gout
Morbid obesity BMI 38
bladder cancer s/p TURBT
Parotid tumor
L THR
Left shoulder tendon repair
Bilateral carpel tunnel release
Chief Complaint
-: Other (ankle/foot pain)
Subjective / Review of Systems
Continue to feel well.
Vital Signs / Physical Exam
Vital Signs
Vital Signs
Temp Pulse Resp BP Pulse Ox
98.2 F 92 16 140/72 97
02/15/24 11:00 02/15/24 11:00 02/15/24 11:00 02/15/24 11:00 02/15/24 11:00
Physical Exam
Constitutional: No Acute Distress and Comfortable
Gastrointestinal: Soft, Non Tender, Non Distended and Normal Bowel Sounds
Extremities: Edema (right ankle/foot resolving, ROM intact)
Objective Data
Lab Data
Lab Results
02/15/24 07:27
02/14/24 06:43
ESR 56 mm/hour (0-20) H 02/13/24 18:12
Estimated Creat Clear 101 ml/min 02/14/24 06:43
Total Bilirubin 0.6 mg/dl (0.2-1.3) 02/13/24 15:04
AST 23 U/L (17-59) 02/13/24 15:04
ALT 15 U/L (0-50) 02/13/24 15:04
Alkaline Phosphatase 69 U/L (38-126) 02/13/24 15:04
C-Reactive Protein 174.50 mg/L (0.0-10.00) H 02/13/24 18:12
Most recent labs reviewed.
Micro Results:
02/14/24 15:28 Body Fluid Culture - Preliminary
Joint Fluid No Growth After 18-24 Hours
Gram Stain - Pending
02/14/24 16:09 Influenza Types A & B (AJAY) - Final
Nasal Swab Negative for Influenza A & B, NAAT
Negative results must be combined with clinical observations
and patient history.
Nucleic Acid Amplification test (NAAT)performed on the
[employer] platform.
02/13/24 Foot/Ankle XRAY: Degenerative changes.
--- NOTE | 2024-02-15 14:35 | CM ---
Addendum entered by Christine Juan 02/15/24 14:37:
Per nurse, patient and requesting to speak to CM. CM placed call to patients , inquiring to speak to Hospitalist regarding discharge questions. TT sent to Hospitalist with request.
Original Note:
Patient seen bedside, discussed PT recommendation of outpatient PT. Patient declining at this time. 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 IMM reviewed, signed, placed in patients chart. CM will continue to follow for all discharge planning
needs. Per nurse, script from Hospitalist provided upon discharge.
Plan; home with script for outpatient PT.
[2024-02-15 15:07] LABS: Lyme Antibody Screen, EIA Negative (Negative)
== END 2024-02-15 15:19 | disposition home or self-care (01) | DRG 554 ==
LOC: 4 WEST ACU 17:56
PROVIDERS: Nurse Practitioner; Physician Assistant Medical; Radiology Vascular & Interventional Radiology; ADMITTING PHYSICIAN Family Medicine; CONSULT PHYSICIAN Internal Medicine Infectious Disease; EMERGENCY PHYSICIAN Student in an Organized Health Care Education/Training Program; FAMILY PHYSICIAN Physician Assistant Medical
PROC: 0S9G3ZX Drainage of Left Ankle Joint, Percutaneous Approach, Diagnostic (ICD-10-PCS; 2024-02-14)
DX: M19.072 Primary osteoarthritis, left ankle and foot (principal); R65.10 Systemic inflammatory response syndrome (SIRS) of non-infectious origin without acute organ dysfunction; M25.572 Pain in left ankle and joints of left foot; E66.01 Morbid (severe) obesity due to excess calories; Z68.38 Body mass index [BMI] 38.0-38.9, adult; I35.0 Nonrheumatic aortic (valve) stenosis; M10.9 Gout, unspecified; M72.2 Plantar fascial fibromatosis; M50.31 Other cervical disc degeneration, high cervical region; M50.321 Other cervical disc degeneration at C4-C5 level; M50.322 Other cervical disc degeneration at C5-C6 level; Z79.899 Other long term (current) drug therapy; Z85.51 Personal history of malignant neoplasm of bladder; Z87.891 Personal history of nicotine dependence; Z88.5 Allergy status to narcotic agent; Z96.642 Presence of left artificial hip joint; Z96.653 Presence of artificial knee joint, bilateral
CPT/HCPCS: 20605; 72040; 73610; 73630; 77002; 80048; 80053; 81003; 81015; 83036; 83735; 84145; 84550; 85025; 85027; 85652; 86140; 86618; 87015; 87070; 87205; 87502; 87811; 93005; 96361; 96374; 97162; 97166; 99285

== ENCOUNTER → 2024-12-07 11:59 | Outpatient (REF) | payer OTHER, SELFPAY | LOC: HWRAD 11:59 | PROVIDERS: ATTENDING PHYSICIAN Physician Assistant Medical | DX: Z00.00 Encounter for general adult medical examination without abnormal findings (principal); Z87.891 Personal history of nicotine dependence | CPT/HCPCS: 71046 ==